=== PATIENT | male | born 1995 | race Caucasian/White ===

== ENCOUNTER 2020-04-04 10:06 | Emergency (ER) | payer SELFPAY ==
[2020-04-04 10:15] VITALS: BP 140/70; PULSE 86; RESP 16; TEMP 37.1; O2SAT 99
--- NOTE | 2020-04-04 10:33 | ED.GENADULT ---
HPI - General Adult General Chief complaint: Skin/Abscess/Foreign Body Stated complaint: sore on stomach Time Seen by Provider: 04/04/20 10:33 Source: patient Mode of arrival: ambulatory Limitations: no limitations History of Present Illness HPI narrative: 24-year-old male with complaints of a wound to the left lower belly since yesterday. Patient states it is tender, warm. The area does rub up against the patient's pants. Patient denies take anything for pain. Patient denies any fevers that he is aware of. Related Data Allergies Allergy/AdvReac Type Severity Reaction Status Date / Time No Known Allergies Allergy Verified 04/04/20 10:29 Review of Systems Review of Systems: Narrative: CONSTITUTIONAL: Denies fever, chills, or sweats. EYES: Denies visual changes, redness, or discharge. ENT: Denies rhinorrhea, congestion, sore throat, or otalgia. CARDIOVASCULAR: Denies chest pain, palpitations, or edema. RESPIRATORY: Denies cough or dyspnea. GASTROINTESTINAL: Denies abdominal pain, nausea, vomiting, or diarrhea. GENITOURINARY: Denies dysuria or hematuria. SKIN: Denies rash or itching. Patient has wound to the left lower abdomen that appears to be an abscess. Does have fluctuant center. The fluctuant area measures approximately 5 cm in length with 1 cm width. There is some surrounding erythema noted. MUSCULOSKELETAL: Denies back pain, joint pain, or myalgia. NEUROLOGIC: Denies headache, numbness, or weakness. PSYCHIATRIC: Denies anxiety or depression. PMFSH Comments At the time of my signature I agree with nursing past medical history, surgical, social, and family history. There is no relevant family history pertinent to the presenting complaint. Exam Narrative: Exam Narrative: GENERAL: Well-appearing, well-nourished, and in no acute distress. HEAD: Normocephalic, atraumatic. EYES: PERRLA and EOMI. ENT: Nares clear, no rhinorrhea or epistaxis. Mucous membranes moist. NECK: Supple. No lymphadenopathy CHEST: Clear to auscultation. No respiratory distress. HEART: Regular rate and rhythm. No murmur heard. Normal peripheral pulses. ABDOMEN: Soft, nontender, nondistended, normal active bowel sounds. EXTREMITIES: Normal range of motion. No edema. SKIN: Warm, dry, no rash. NEURO: No focal deficits. Alert and oriented x3. Course Vital Signs Vital signs: Vital Signs Temperature 37.1 C 04/04/20 10:15 Pulse Rate 86 04/04/20 10:15 Respiratory Rate 16 04/04/20 10:15 Blood Pressure 140/70 04/04/20 10:15 Pulse Oximetry 99 04/04/20 10:15 Temperature 37.1 C 04/04/20 10:15 Pulse Rate 86 04/04/20 10:15 Respiratory Rate 16 04/04/20 10:15 Blood Pressure 140/70 04/04/20 10:15 Pulse Oximetry 99 04/04/20 10:15 Vital signs reviewed. The patient has been informed that they may have pre-hypertension or Hypertension based on a BP reading in the department. I recommend that the patient call the primary care provider listed on their discharge instructions or a physician of their choice this week to arrange follow up for further evaluation of possible pre-hypertension or Hypertension Procedures Abscess I/D abdomen: Date of Incision: 04/04/20 Time of Incision: 10:40 Side (if applicable): left Local Anesthetic: lidocaine 1% Amount of anesthesia used (mL): 4 Technique: incised with #11 blade Irrigation: Yes Packing used?: none I&D Results: Pus and Blood Abcess I&D Additional Comments: The procedure was explained and verbal consent is obtained. The wound was anesthetized with 4 ml of 1% lidocaine with good anesthesia. Sterile drape and prep are done. The fluctuant center was incised with #11 blade scalpel. A small amount of yellow pus and blood was expressed. Culture was taken of the pus. The wound was probed for loculated area and irrigated with normal saline. Wound was left open. Dressing was applied. The patient tolerated the procedure well.
== END 2020-04-04 10:55 | disposition home or self-care (01) ==
PROVIDERS: Emergency Provider Nurse Practitioner Family
DX: L02.211 Cutaneous abscess of abdominal wall (principal); R03.0 Elevated blood-pressure reading, without diagnosis of hypertension
CPT/HCPCS: 10060; 87070; 87075; 87076; 87185; 87205; 99213; G0463

== ENCOUNTER 2025-03-29 13:00 | Emergency (ER) | payer MEDICAID, SELFPAY ==
--- OUTSIDE RECORDS SUMMARY | 2025-03-29 13:04 | XMS_ITS | Clinical Summary ---
Author Organization [facility] Address [address] [place] [address] Phone Care Team Providers Care Technology Professional Name Role Phone Jason Fernandez MD Primary Care Provider [phone] Andi Franklin MD Unavailable [phone] Allergies No known active allergies Medications albuterol 108 (90 Base) MCG/ACT Aerosol Solution take 2 Puffs by inhalation every 6 hours as needed for Cough. 6.7 g 2 Active naproxen (NAPROSYN) 500 MG Tablet Take 1 Tablet by mouth 2 times daily (with meals). 60 Tablet 2 Active HYDROcodone-acet aminophen (NORCO) 5-325 MG TabletIndication s:Gluteal abscess Take 1 Tablet by mouth every 8 hours as needed for Severe pain. 12 Tablet 4 Active ondansetron (ZOFRAN-ODT) 4 MG TABLET DISPERSIBLE Take 1 Tablet by mouth every 8 hours as needed for Nausea - 1st line. 10 Tablet 5 Active Active Problems No known active problems Encounters Date Type Department Care Team Description 02/01/2025 6:44 AM CDT - 02/01/2025 10:10 AM CDT Emergency [facility] [address] [place] [address] Ze Parry MD Gastroenteritis Discharge Disposition: Discharged to home or Selfcare 02/01/2025 Travel from Last 3 Months Immunizations Immunization Administration Dates Next Due DTP Vaccine 08/16/1997, 5,01/10/1994,11/19,1993 Hepatitis A Vaccine, Pediatric/adolescent, 2 Dose Schedule 07/04/2005 Hepatitis B Vaccine, Pediatric/adolescent 03/20/1994,1993,1993 Hib Vaccine,unspecified Formulation 10/02,01/10/1994,1993,08/20 Inactivated Polio Vaccine 08/16/1997 MMR Vaccine 08/16/1997,10/14/1994 Meningococcal Vaccine, Unspe cified Formulation 06/22/2008 OPV 08/16/1994, 4,1993,08/20 TD VACCINE 07/04/2004 Social History Tobacco Use Types Packs/Day Years Used Date Smoking Tobacco: Every Day Cigarettes Smokeless Tobacco: Never Alcohol Use Standard Drinks/Week Comments Yes 0 (1 standard drink = 0.6 oz pur e alcohol) occasional Sex and Gender Information Value Date Recorded Sex Assigned at Not on file Legal Sex Male 10:55 PM CDT Gender Identity Not on file Sexual Orientation Not on file Last Filed Vital Signs Vital Sign Reading Time Taken Comments Blood Pressure 118/73 02/01/2025 10:00 AM CDT Pulse 78 02/01/2025 10:00 AM CDT Temperature 36.7 C (98 F) 02/01/2025 10:00 AM CDT Respiratory Rate 14 02/01/2025 10:00 AM CDT Oxygen Saturation 98% 02/01/2025 10:00 AM CDT Inhaled Oxygen Concentration - - Weight 116.8 kg (257 lb 8 oz) 02/01/2025 6:51 AM CDT Height 172.7 cm (5' 8) 02/01/2025 6:51 AM CDT Body Mass Index 39.15 02/01/2025 6:51 AM CDT Plan of Treatment Health Maintenance Due Date Last Done Comments Hepatitis C Virus (HCV) Screening 1993 DTaP/Tdap/Td Immunization (6 - Tdap) 07/05/2004 07/04/2004, 08/16/1997, 01/14/1995, Additional history exists Pneumococcal Immunization Combined (1 of 2 - PCV) 2012 SARS-COV-2 Immunization ( - season) 2024 Influenza Immunization (Season Ended) 2025 Respiratory Syncytial Virus (RSV) Immunization (Adult) (1 - 1-dose 75+ series) 2068 Hepatitis B Immunization Completed 994, 1993, 1993 Meningococcal Immunization (ACWY) Aged Out 06/22/2008 No longer eligible based on patient's age to complete this topic Rotavirus Immunization Aged Out No lo nger eligible based on patient's age to complete this topic Procedures Procedure Name Priority Date/Time Associated Diagnosis Comments XR CHEST 2 VIEWS STAT 02/01/2025 7:52 AM CDT RSV,SARS-COV-2,INFLUE NZA A&B BY PCR STAT 02/01/2025 6:59 AM CDT GOLD TOP TUBE STAT 02/01/2025 6:58 AM CDT BLUE TOP TUBE STAT 02/01/2025 6:58 AM CDT CBC WITH AUTO DIFFERENTIAL STAT 02/01/2025 6:58 AM CDT EXTRA TUBES STAT 02/01/2025 6:58 AM CDT TROPONIN I, HIGH SENSITIVITY (HSTRP) STAT 02/01/2025 6:58 AM CDT CMP (COMPREHENSIVE METABOLIC PANEL) STAT 02/01/2025 6:58 AM CDT COMPLETE BLOOD COUNT (CBC) WITH DIFF STAT 02/01/2025 6:58 AM CDT EKG 12 LEAD STAT 02/01/2025 6:46 AM CDT EKG SCAN 02/01/2025 12:00 AM CDT from Last 3 Months Results * XR CHEST 2 VIEWS (02/01/2025 7:52 AM CDT) Anatomical Region Laterality Modality Chest N/A Digital Radiogra phy 02/01/2025 7:57 AM CDT Impressions 02/01/2025 7:59 AM CDT IMPRESSION: Mild left basilar opacities abutting the left heart border on the frontal view are favored to represent atelectasis but airspace disease is not excluded. Narrative 02/01/2025 7:59 AM CDT EXAM DESCRIPTION: XR CHEST 2 VIEWS REASON FOR STUDY: Nauseas, vomiting, chest burning/pain since yesterday. Hx. Smoker TECHNIQUE: 2 radiographic view(s) of the chest. COMPARISON: 10/11/2024 FINDINGS: LUNGS: Mild left basilar opacities abutting the left heart border on the frontal view are favored to represent atelectasis but airspace disease is not excluded. Otherwise the lungs are clear. No pleural effusion or pneumothorax. HEART/MEDIASTINUM: Cardiac silhouette normal in size. Mediastinal and hilar contours appear normal. LINES/TUBES: None. BONES: No acute osseous abnormality. THIS IS AN ELECTRONICALLY VERIFIED FINAL REPORT 02/01/2025 7:57 AM - Electronically signed by Jama Galan M.D. MM: MM Report ID: [id number] Reading Location: [id number] Procedure Note Jama Galan MD - 02/01/2025 EXAM DESCRIPTION: XR CHEST 2 VIEWS REASON FOR STUDY: Nauseas, vomiting, chest burning/pain since yesterday. Hx. Smoker TECHNIQUE: 2 radiographic view(s) of the chest. COMPARISON: 10/11/2024 FINDINGS: LUNGS: Mild left basilar opacities abutting the left heart border on the frontal view are favored to represent atelectasis but airspace disease is not excluded. Otherwise the lungs are clear. No pleural effusion or pneumothorax. HEART/MEDIASTINUM: Cardiac silhouette normal in size. Mediastinal and hilar contours appear normal. LINES/TUBES: None. BONES: No acute osseous abnormality. THIS IS AN ELECTRONICALLY VERIFIED FINAL REPORT 02/01/2025 7:57 AM - Electronically signed by Jama Galan M.D. MM: MM Report ID: [id number] Reading Location: [id number] IMPRESSION: Mild left basilar opacities abutting the left heart border on the frontal view are favored to represent atelectasis but airspace disease is not excluded. Ze Parry MD IMG DIAGNOSTIC ORDERABLES Final Result * RSV,SARS-COV-2,INFLUENZA A&B BY PCR (02/01/2025 6:59 AM CDT) Pathologist [facility] FLU A Negative Negative, Error 02/01/2025 8:03 AM CDT [facility] FLU B Negative Negative 02/01/2025 8:03 AM CDT [facility] RESP SYNC VIRUS Negative Negative 8:03 AM CDT [facility] SARSCOV2 NOT DETECTED (Reference Range for this test is Not Detected) 02/01/2025 8:03 AM CDT [facility] Comment:This test was perfor med by a Reverse Regulatory Intern PCR Method. Swab NASOPHARYNGEAL STRUCTURE / Unknown Non-Phlebotomy Collection / Unknown 02/01/2025 6:59 AM CDT 02/01/2025 7:05 AM CDT Ze Parry MD MICROBIOLOGY - GENERAL ORD ERABLES Final Result [facility] [address] [place] [address] * TROPONIN I, HIGH SENSITIVITY (HSTRP) (02/01/2025 6:58 AM CDT) [facility] TROPONIN I, HIGH SENSITIVITY- PECK <3 <=35 ng/L 02/01/2025 7:33 AM CDT [facility] Comment: High-sensitivity troponin I results are reported in ng/L making the result appear to be 1,000 times higher than the contemporary troponin I value which is reported in ng/ml. Results from [facility]. Blood Venipuncture / Unknown 02/01/2025 6:58 AM CDT 02/01/2025 7:05 AM CDT Ze Parry MD CHEMISTRY ORDERABLES Final Result Performing Organization Address [facility] Co de Phone Number [facility] [address] [place] [address] * Gold Top Tube (02/01/2025 6:58 AM CDT) Blood No Phlebotomy Charged / Unknown 02/01/2025 6:58 AM CDT 02/01/2025 7:06 AM CDT Ze Parry MD CHEMISTRY ORDERABLES Final Result Performing Organization Address [facility] Co de Phone Number [facility] [address] [place] [address] * Blue Top Tube (02/01/2025 6:58 AM CDT) Blood No Phlebotomy Charged / Unknown 02/01/2025 6:58 AM CDT 02/01/2025 7:06 AM CDT Ze Parry MD HEMATOLOGY ORDERABLES Carol l Result Performing Organization Address [facility] Co de Phone Number [facility] [address] [place] [address] * (ABNORMAL) CBC with Auto Differential (02/01/2025 6:58 AM CDT) WBC 6.40 4.00 - 12.00 10(3)/mcL 02/01/2025 7:10 AM CDT [facility] RBC 4.90 4.40 - 5.80 10(6)/mcL 02/01/2025 7:10 AM CDT [facility] HEMOGLOBIN (HGB) 14.3 13.0 - 16.5 g/dL 02/01/2025 7:10 AM CDT [facility] HEMATOCRIT (HCT) 45.5 38.0 - 50.0 % 02/01/2025 7:10 AM CDT [facility] MCV 92.9 82.0 - 96.0 fL 02/01/2025 7:10 AM CDT [facility] MCH 29.2 26.0 - 32.0 pg 02/01/2025 7:10 AM CDT [facility] MCHC 31.4 31.0 - 36.0 g/dL 02/01/2025 7:10 AM CDT [facility] PLATELET COUNT 269 140 - 440 10(3)/mcL 02/01/2025 7:10 AM CDT [facility] RDW 14.7 11.8 - 15.5 % 02/01/2025 7:10 AM CDT [facility] MPV 10.3 8.0 - 12.6 fL 02/01/2025 7:10 AM CDT [facility] NEUTROPHILS 70.3(H) 40.0 - 68.0 % 02/01/2025 7:10 AM CDT [facility] LYMPHOCYTES 19.8 19.0 - 49.0 % 02/01/2025 7:10 AM CDT [facility] MONOCYTES 6.7 3.0 - 13.0 % 02/01/2025 7:10 AM CDT [facility] EOSINOPHILS 2.7 0.0 - 8.0 % 02/01/2025 7:10 AM CDT [facility] BASOPHILS 0.5 0.0 - 1.0 % 02/01/2025 7:10 AM CDT [facility] ABSOLUTE NEUTROPHILS 4.50 1.40 - 5.30 10(3)/mcL 02/01/2025 7:10 AM CDT [facility] ABSOLUTE LYMPHOCYTES 1.27 0.90 - 3.30 10(3)/mcL 02/01/2025 7:10 AM CDT [facility] ABSOLUTE MONOCYTES 0.43 0.10 - 0.90 10(3)/mcL 02/01/2025 7:10 AM CDT [facility] ABSOLUTE EOSINOPHIL 0.17 0.00 - 0.50 10(3)/mcL 02/01/2025 7:10 AM CDT [facility] ABSOLUTE BASOPHILS 0.03 0.00 - 0.10 10(3)/mcL 02/01/2025 7:10 AM CDT [facility] NRBC PER 100 WBC 0 02/02/20 7:10 AM CDT [facility] Blood Venipuncture / Unknown 02/01/2025 6:58 AM CDT 02/01/2025 7:05 AM CDT us Ze Parry MD HEMATOLOGY ORDERABLES Carol l Result [facility] [address] [place] [address] * (ABNORMAL) Comprehensive Metabolic Panel (Cmp) [id number] (02/01/2025 6:58 AM CDT) SODIUM 138 136 - 145 mmol/L 02/01/2025 7:29 AM CDT [facility] POTASSIUM 3.7 3.5 - 5.1 mmol/L 02/01/2025 7:29 AM CDT [facility] CHLORIDE 104 98 - 107 mmol/L 02/01/2025 7:29 AM CDT [facility] CO2, VENOUS 25 22 - 30 mmol/L 02/01/2025 7:29 AM CDT [facility] ANION GAP 12.7 <18.0 mmol/L 02/01/2025 7:29 AM CDT [facility] GLUCOSE 117(H) 70 - 99 mg/dL 02/01/2025 7:29 AM CDT [facility] BUN 9 9 - 21 mg/dL 02/01/2025 7:29 AM CDT [facility] CREATININE, BLOOD 0.74 0.70 - 1.30 mg/dL 02/01/2025 7:29 AM CDT [facility] BUN/CREATININE RATIO 12 12 - 20 ratio 02/01/2025 7:29 AM CDT [facility] TOTAL PROTEIN 7.5 6.0 - 8.0 g/dL 02/01/2025 7:29 AM CDT [facility] ALBUMIN 3.7 3.5 - 5.0 g/dL 02/01/2025 7:29 AM T [facility] A/G RATIO 1.0 1.0 - 2.2 02/01/2025 7:29 AM CDT [facility] CALCIUM 8.4(L) 8.7 - 10.5 mg/dL 02/01/2025 7:29 AM CDT [facility] T BILI 1.2 0.2 - 1.2 mg/dL 02/01/2025 7:[facility] 23 <43 U/L 02/01/2025 7:29 AM [facility] SGPT (ALT) 36 <56 U/L 02/01/2025 7:29 [facility] ALKALINE PHOSPHATASE 129 40 - 150 U/L 02/01/2025 7:29 AM CDT [facility] GFR, ESTIMATED >60 >=60 02/01/2025 7:29 AM CDT [facility] Comment: Creatinine Clearance is the preferred criteria for selecting drug dose adjustments in renally impaired patients. The GFR is provided as additional pertinent clinical information. GFR is reported in mL/min/1.73 sq m. Calculation based on the Chronic Kidney Disease Epidemiology Collaboration (CKD- EPI) equation refit without adjustment for race. GFR, EST. >60 >=60 025 7:29 AM CDT [facility] GFR, EST. NONAFRICAN >60 >=60 02/01/2025 7:29 AM T [facility] Blood Venipuncture / Unknown 02/01/2025 6:58 AM CDT 02/01/2025 7:05 AM CDT us Ze Parry MD CHEMISTRY ORDERABLES Final Result [facility] [address] [place] [address] * EKG 12 LEAD (02/01/2025 6:46 AM CDT) Ventricular Rate 89 BPM EXTERNAL EKG Atrial Rate 89 BPM EXTERNAL EKG P-R Interval 118 ms EXTERNAL EKG QRS Duration 76 ms EXTERNAL EKG Q-T Duration 366 ms EXTERNAL EKG QTC CALCULATION 445 ms EXTERNAL EKG P [place] 55 degrees EXTERNAL EKG R [place] 68 degrees EXTERNAL EKG T [place] 49 degrees EXTERNAL EKG 02/01/2025 6:46 AM CDT Impressions EXTERNAL EKG - 02/01/2025 9:22 AM CDT Normal sinus rhythm Normal ECG No previous ECGs available Confirmed by ROSITA DICKEY ([id number]) on 02/01/2025 9:22:28 AM Narrative Procedure Note Rosita Dickey MD - 02/01/2025 IMPRESSION: Normal sinus rhythm Normal ECG No previous ECGs available Confirmed by ROSITA DICKEY ([id number]) on 02/01/2025 9:22:28 AM us Ze Parry MD IMG ECG ORDERABLES Final R esult Performing Organization Address [facility] Co de Phone Number EXTERNAL EKG * EKG SCAN (02/01/2025 12:00 AM CDT) 02/01/2025 us Provider Scan IMG ECG ORDERABLES Final Result RESULTING AGENCY from Last 3 Months Care Teams Technology Professional Relationship Specialty Start Date End Date Jason Fernandez MD [address] [place] [address] [place] [address] PCP - General Family Medicine 11/18/17 Andi Franklin MD [address] [place] [address] Consulting Physician Urology 08/15/24
--- OUTSIDE RECORDS SUMMARY | 2025-03-29 13:04 | XMS_ITS | Clinical Summary ---
Author Organization [facility] Address [address] [place] [address] Care Team Providers Care Settlement Worker Name Role Phone Peewee Trujillo MD Primary Care Provider [phone] Allergies No known active allergies Medications HYDROcodone-marco antonio taminophen (NORCO) 5-325 mg per tabletIndicatio ns:Pain Take 1-2 tablets by mouth every 4 (four) hours as needed for pain Do not exceed 8 tablets/day. 12 tablet 08/08/2024 Active Active Problems Problem Noted Date Diagnosed Date Tobacco abuse 11/17/2022 Acute right flank pain 11/17/2022 Atypical chest pain 11/17/2022 Acute idiopathic gout involving toe of left foot 11/17/2022 Dentalgia 03/31/2021 Dental caries 03/31/2021 Immunizations Immunization Administration Dates Next Due DTP 08/16/1997, 5,01/10/1994,1993, 1993 HPV, Unspecified 11/17/2022(Deferred: Patient Refused),07/03/2022(Deferred: Patient Refused) Hep A, Pediatric 07/04/2005 Hep B, Adolescent or Pediatric 03/20/1994,1992,1993 HiB 10/14/1994,01/10/1994,1993 ,1993 IPV 08/16/1997 MMR 08/16/1997,10/14/1994 Meningococcal ACWY, Unspecified 06/22/2008 OPV 08/16/1994,01/10/1994,1993 ,1993 Td, adsorbed 07/04/2004 Medical History Medical History Date Comments No known health problems Gout Family History Medical History Relation Name Comments Hyperlipidemia Father Diabetes Mother's Sister Lung cancer Paternal Grandmother Relation Name Status Comments Father Alive Mother Alive Mother's Sister Paternal Grandmother Social History Tobacco Use Types Packs/Day Years Used Date Smoking Tobacco: Every Day Cigarettes 1 12 Smokeless Tobacco: Never Tobacco Cessation:Ready to Q uit: Not Asked; Counseling Given: Not Answered Alcohol Use Standard Drinks/Week Comments Not Currently 0 (1 standard drink = 0.6 oz pur e alcohol) AUDIT-C Answer Date Recorded Q1: How often do you have a drink containing alc ohol? 2-3 times a week 11/17/2022 Q2: How many drinks containi ng alcohol do you have on a typical day when you are drinking? 5 or 6 11/17/2022 Frequency of Binge Drinking Not on file 11/02 PHQ-2 Answer Date Recorded PHQ-2 Total Score (If total score is 3 or more points, staff should administer the PHQ-9) 0 11/17/2022 Exercise Vital Sign Answer Date Recorde d On average, how many days pe r week do you engage in moderate to strenuous exercise (like a brisk walk)? 0 days 11/17/2022 On average, how many minutes do you engage in exercise at this level? 0 min 11/17/2022 Personal Safety Answer Date Recorded Have you ever been in or are you currently in a harmful physical or emotional relationship or is someone making you feel afraid or unsafe? Denies 11/28/2024 Sex and Gender Information Value Date Recorded Sex Assigned at Not on file Legal Sex Male 3:19 PM [employer] Gender Identity Not on file Sexual Orientation Not on file Obstetrics History Last Filed Vital Signs Vital Sign Reading Time Taken Comments Blood Pressure 153/93 11/28/2024 12:00 PM [employer] INST[employer]ER Pulse 67 11/28/2024 12:00 PM [employer]ST[employer]ER Temperature 36.4 C (97.6 F) 11/28/2024 9:45 AM [employer] INSTALLER Respiratory Rate 17 11/28/2024 12:00 PM [employer] INSTALLER Oxygen Saturation 98% 11/28/2024 12:00 PM [employer]OUSI[employer] INSTALLER Inhaled Oxygen Concentration - - Weight 122.5 kg (270 lb) 11/28/2024 9:45 AM [employer] INSTALLER Height 172.7 cm (5' 8) 11/28/2024 9:45 AM [employer]OUSIES INSTALLER Body Mass Index 41.05 11/28/2024 9:45 AM [employer]OUSIES INSTALLER Plan of Treatment Health Maintenance Due Date Last Done Comments Hepatitis C Screening 1993 DTaP/Tdap/Td Vaccine (6 - Tdap) 07/05/2004 07/04/2004, 08/16/1997, 01/14/1995, Additional history exists Varicella Vaccines (1 of 2 - 13+ 2-dose series) 2006 Regular Well Visit/Exam 18-64 2011 Pneumococcal vaccine <65 (1 of 2 - PCV) 2012 Depression Screening 11/17/2023 11/17/2022 Influenza Vaccine (Season Ended) 2025 Hepatitis B Screening Completed 03/20/1994 , 1993, 1993 HPV Vaccines Aged Out No longer eligi ble based on patient's age to complete this topic Insurance [facility] Care Teams Settlement Worker Relationship Specialty Start Date End Date Peewee Trujillo MD [address] [place] [address] PCP - General Family Medicine 11/17/22
--- OUTSIDE RECORDS SUMMARY | 2025-03-29 13:04 | XMS_ITS | Clinical Summary ---
Author Organization [facility] Address [address] [place] [address] Care Team Providers Care Mate Fourth Name Role Phone Unavailable Primary Care Provider Unavailabl e Source Comments [facility],non-owned Affiliates and Associated Physician Practices is amultiple site organization consisting of ambulatory clinics and hospital sitesin [place], [place], [place] and [place]. This disclosure is being madepursuant to the Care Everywhere program and may not contain all information available regarding this patient. Last updated 18.[facility] Social History Tobacco Use Types Packs/Day Years Used Date Smoking Tobacco: Never Assessed Sex and Gender Information Value Date Recorded Sex Assigned at Not on file Legal Sex Male 5:35 AM ADVANCED REGISTERED NURSE Gender Identity Not on file Sexual Orientation Not on file Plan of Treatment Health Maintenance Due Date Last Done Comments HIV SCREENING 2008 HEPATITIS C SCREENING 06/16/2011 DTAP/TDAP/TD VACCINES (1 - Tdap) 2012 HEPATITIS B VACCINE (1 of 3 - 19+ 3-dose series) 2012 COVID-19 VACCINE (1 - 2023-2 5 season) 2024 DEPRESSION SCREENING 11/02/2024 INFLUENZA VACCINE (Season Ended) 2025 ZOSTER VACCINE (1 of 2) 2043 HIB VACCINE Aged Out No longer eligi ble based on patient's age to complete this topic HPV VACCINE Aged Out No longer eligi ble based on patient's age to complete this topic MENINGOCOCCAL (Group B) VACC INE SHARED DECISION-MAKING Aged Out No longer eligibl e based on patient's age to complete this topic MENINGOCOCCAL GROUPS A/C/Y/W VACCINE Aged Out No longer eligible b ased on patient's age to complete this topic PNEUMOCOCCAL VACCINE Aged Out No long er eligible based on patient's age to complete this topic Insurance [place] [address] [facility]
--- OUTSIDE RECORDS SUMMARY | 2025-03-29 13:04 | XMS_ITS | Referral Summary ---
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:19 PM DAIRY HUSBANDRY WORKER Gender Identity Not on file Sexual Orientation Not on file Last Filed Vital Signs Vital Sign Reading Time Taken Comments Blood Pressure 153/93 11/28/2024 12:00 PM DAIRY HUSBANDRY WORKER Pulse 67 11/28/2024 12:00 PM DAIRY HUSBANDRY WORKER Temperature 36.4 C (97.6 F) 11/28/2024 9:45 AM DAIRY HUSBANDRY WORKER Respiratory Rate 17 11/28/2024 12:00 PM DAIRY HUSBANDRY WORKER Oxygen Saturation 98% 11/28/2024 12:00 PM DAIRY HUSBANDRY WORKER Inhaled Oxygen Concentration - - Weight 122.5 kg (270 lb) 11/28/2024 9:45 AM DAIRY HUSBANDRY WORKER Height 172.7 cm (5' 8) 11/28/2024 9:45 AM DAIRY HUSBANDRY WORKER Body Mass Index 41.05 11/28/2024 9:45 AM DAIRY HUSBANDRY WORKER Plan of Treatment Not on file Insurance [facility] Care Teams Horse Breaker Relationship Specialty Start Date End Date Peewee Trujillo [place] [address] PCP - General Family Medicine 11/17/22
--- NOTE | 2025-03-29 13:05 | ECG_ITS ---
Test Date: 2025-03-29 13:12:01 Measurements Intervals Ovid Rate: 97 P: 25 LA: 142 QRS: 44 QRSD: 98 T: 37 QT: 343 QTc: 437 Interpretive Statements SINUS RHYTHM INTERPRETATION BASED ON A DEFAULT AGE OF 40 YEARS No previous ECG available for comparison Electronically Signed On 03-30-2025 15:07:27 CDT by Crescencio Campbell M.D.
[2025-03-29 13:12] VITALS: BP 139/72; PULSE 98; RESP 20; TEMP 36.9; O2SAT 98
--- NOTE | 2025-03-29 13:26 | ED.CHESTPAIN ---
HPI - Chest Pain General Chief Complaint: Chest Pain Stated Complaint: chest discomfort,dizziness Time Seen by Provider: 03/29/25 13:05 Source: patient Mode of arrival: ambulatory Limitations: no limitations History of Present Illness HPI narrative: 29 yo M with no significant medical history presents with c/o intermittent midsternal CP with dizziness with standing. Symptoms started this morning. Noticed them after waking up and getting out of bed. Denies sweating, N/V. No dizziness at this time. had to call into work. Requesting work note. All systems reviewed and negative except as noted above. Related Data Home Medications ?Medication ?Instructions ?Recorded ?Confirmed ?Last Taken ?Type No Home Medications 03/29/25 Unknown History Allergies Allergy/AdvReac Type Severity Reaction Status Date / Time No Known Allergies Allergy Verified 03/29/25 13:16 Review of Systems Review of Systems: CONSTITUTIONAL: Denies fever, chills, or sweats. EYES: Denies visual changes, redness, or discharge. ENT: Denies rhinorrhea, congestion, sore throat, or otalgia. CARDIOVASCULAR: Reports chest pain. Denies palpitations, or edema. RESPIRATORY: Denies cough or dyspnea. GASTROINTESTINAL: Denies abdominal pain, nausea, vomiting, or diarrhea. GENITOURINARY: Denies dysuria or hematuria. SKIN: Denies rash or itching. MUSCULOSKELETAL: Denies back pain, joint pain, or myalgia. NEUROLOGIC: Denies headache, numbness, or weakness. reports dizziness PSYCHIATRIC: Denies anxiety or depression. All other systems reviewed are negative, except as documented in HPI. PMFSH Comments At time of signature, agree with nursing past medical, surgical, social and family history. There is no relevant family history pertinent to the presenting complaint. Exam Narrative: GENERAL: This is a well-nourished, well-developed patient, in no apparent distress. HEAD: normocephalic, atraumatic. EYES: PERRL. Sclera clear/white. Vision is grossly intact. EARS: External ears normal NOSE: External nose normal NECK: Neck supple, non-tender without lymphadenopathy, masses or thyromegaly. CARDIOVASCULAR: Regular rate and rhythm without murmurs, gallops, or rubs. RESPIRATORY: Clear to auscultation. Breath sounds equal bilaterally. No wheezes, rales, or rhonchi. SKIN: warm, Dry, intact with no suspicious lesions or rash, good texture and turgor. NEURO: awake, alert, and oriented to person, place and time. There were no obvious focal neurologic abnormalities. EXTREMITIES: No joint tenderness, effusion, or edema noted. Course Course Level of Care: Express Care Visit Vital Signs Vital signs: Vital Signs Temperature 36.9 C 03/29/25 13:12 Pulse Rate 98 03/29/25 13:12 Respiratory Rate 20 03/29/25 13:12 Blood Pressure 139/72 03/29/25 13:12 Pulse Oximetry 98 03/29/25 13:12 Temperature 36.9 C 03/29/25 13:12 Pulse Rate 98 03/29/25 13:12 Respiratory Rate 20 03/29/25 13:12 Blood Pressure 139/72 03/29/25 13:12 Pulse Oximetry 98 03/29/25 13:12 reviewed MDM - Chest Pain MDM Narrative Medical decision making narrative: EKG HR 97, NSR, no ischemic changes. recommend patient go to ER for further evaluation of chest pain and dizziness. Patient initially said he did not want to go by ambulance. Agree that his girlfriend could drive him. Patient then said he did not want to go to ER at all, plans to go later if he is feeling worse. Patient requesting work note. Discharge Plan Discharge Clinical Impression: Chest pain, Dizziness Patient Disposition: Left Against Medical Advice Condition: Stable Additional Instructions: You refused transfer to emergency department today to further evaluate your symptoms. Your EKG was normal today. If your symptoms continue or for any worsening of symptoms go to the ER. Patient Language: Wolof Prescriptions: No Action No Home Medications Follow-up/Referrals: PHYSICIAN,OPERATIONAL REVIEW SERGEANT [Primary Care Provider] - Jac Alicea MD [Physician] - ( Establish care with a primary care physician) Stand Alone Forms: Work/School Release IP Time of Disposition: 13:17
== END 2025-03-29 13:23 | disposition left against medical advice (07) ==
PROVIDERS: Emergency Provider Nurse Practitioner Family
DX: R07.9 Chest pain, unspecified (principal); R42 Dizziness and giddiness
CPT/HCPCS: 93005; 99213; G0463